=== PATIENT | female | born 1995 | race Caucasian/White ===

== ENCOUNTER 2019-04-20 10:39 | Day surgery (SDC) | payer OTHER ==
[~2019-04-20] VITALS: Ht 167.6 cm; Wt 82.8 kg
[2019-04-20] MEDS ORDERED: LACTATED RINGERS 1,000 ML IV SCH (11:34)
[2019-04-20 11:55] VITALS: BP 107/74
[2019-04-20 11:58] LABS: HCG UR SG 1.019 (1.003-1.030)
[2019-04-20] MEDS ORDERED: SCOPOLAMINE PATCH, 1.5MG PATCH.TD72 TD ONE (12:00)
[2019-04-20] MEDS ORDERED: PLEASE ENTER ALLERGIES MC SCH (12:00)
[2019-04-20] MEDS ORDERED: PLEASE ENTER HEIGHT AND WEIGHT MC SCH (12:00)
[2019-04-20] MEDS ORDERED: ACETAMINOPHEN 500 MG TABLET PO ONE (12:00)
[2019-04-20] MEDS ORDERED: GABAPENTIN 300 MG CAPSULE PO ONE (12:00)
[2019-04-20] MEDS ORDERED: FENTANYL PF 100 MCG/2ML ONE (12:02)
[2019-04-20] MEDS ORDERED: MIDAZOLAM 1 MG/ML, 2ML ONE (12:03)
[2019-04-20] MEDS ORDERED: BUPIVACAINE/PF 0.5% ONE (13:05)
[2019-04-20] MEDS ORDERED: EPINEPHRINE 1 MG/ML, 1ML ONE (13:05)
[2019-04-20] MEDS ORDERED: ONDANSETRON 2MG/ML, 2ML ONE (13:08)
[2019-04-20] MEDS ORDERED: KETOROLAC 30 MG/1 ML ONE (13:08)
[2019-04-20] MEDS ORDERED: PROPOFOL 10 MG/ML, 20ML ONE (13:08)
[2019-04-20] MEDS ORDERED: CEFAZOLIN 1,000 MG ONE (13:08)
[2019-04-20] MEDS ORDERED: DEXAMETHASONE 4 MG/ML, 1ML ONE (13:08)
[2019-04-20] MEDS: OXYcodone 5 MG/5 ML ORAL.SOL UDC PO PRN ×2 (14:10→15:54)
[2019-04-20] MEDS ORDERED: OXYcodone 5 MG/5 ML ORAL.SOL UDC ONE (14:10)
[2019-04-20] MEDS ORDERED: MEPERIDINE/PF 25MG/ML,1ML IVPush PRN (15:30)
[2019-04-20] MEDS ORDERED: FENTANYL PF 100 MCG/2ML IV PRN (15:30)
[2019-04-20] MEDS ORDERED: OXYcodone 5 MG/5 ML ORAL.SOL UDC PO PRN (15:30)
[2019-04-20] MEDS ORDERED: MIDAZOLAM 1 MG/ML, 2ML IV PRN (15:30)
== END 2019-04-20 17:05 | disposition home or self-care (01) ==
LOC: OUT 10:39
PROVIDERS: ATTEND Surgery
DX: L02.216 Cutaneous abscess of umbilicus (principal); E66.9 Obesity, unspecified; Z90.49 Acquired absence of other specified parts of digestive tract; Z79.899 Other long term (current) drug therapy; Z83.3 Family history of diabetes mellitus
CPT/HCPCS: 10060; 81025; J0171; J0690; J1100; J1885; J2250; J2405; J2704; J3010; J7120

== ENCOUNTER 2019-09-06 08:22 | Emergency (ER) | payer OTHER ==
[~2019-09-06] VITALS: Ht 165.1 cm; Wt 87.5 kg
[2019-09-06 08:32] VITALS: BP 115/63
[2019-09-06 10:04] LABS: RAPID INFLUENZA A Negative (Negative); RAPID INFLUENZA B Negative (Negative)
--- NOTE | 2019-09-06 10:06 | NUR ---
C/O: COUGH FOR TWO WEEKS, RESOLVED "FEVERS", AND "PHLEM COUGH" AND PAIN WITH COUGHING. PT STATES "I WENT TO [facility] ABOUT 3 WEEKS AGO." PT'S AOX4. RESPS EVEN AND UNLABORED. DENIES ANY OTHER SYMPTOMS. LMP: "5 YEARS AGO"
--- NOTE | 2019-09-06 10:42 | NUR ---
Patient given discharge instructions and they have confirmed that they understand the instructions. Patient ambulatory with steady gait.
== END 2019-09-06 10:43 | disposition home or self-care (01) ==
LOC: ED 10:33
DX: J06.9 Acute upper respiratory infection, unspecified (principal); B34.9 Viral infection, unspecified
CPT/HCPCS: 71046; 87081; 87400; 87880; 99284